=== PATIENT | female | born 1945 ===

== ENCOUNTER 2016-09-01 06:31 | Day surgery (SDC) | payer MEDICARE ==
[2016-09-01 06:56] VITALS: BMI 19.3
[2016-09-01] MEDS ORDERED: Midazolam 2 MG/2 ML VIAL ONE (07:43)
[2016-09-01] MEDS ORDERED: Propofol 10 mg/ml Inj (20 ML) ONE (07:43)
--- NOTE | 2016-09-01 07:57 | CP.SDSHP ---
Same Day Surgery H & P - History Proposed Procedure: Flexible sigmoidoscopy Pre-Op Diagnosis: Colitis - Previous Medical/Surgical History Cardiac: Other Comments: Hyperlipidemia Previous Surgical History: Glaucoma, stapedectomy - Allergies Allergies: Allergies No Known Allergies Allergy (Unverified 08/01/13 12:58) - Current Medications Current Medications: See list - Physical Exam General Appearance: WD WN female in NAD Vital Signs: Vital Signs 09/01/16 06:56 Temperature 98.6 F Pulse Rate 94 H Respiratory 18 Rate Blood Pressure 141/63 O2 Sat by Pulse 100 Oximetry Mental Status: Alert & Oriented x3 Neuro: WNL Heart: WNL Lungs: WNL GI: WNL - {Optional Preform as Required} Abdomen: WNL - Impression Impression: Colitis Pt. Evaluated Today:Candidate for Anesthesia & Procedure: Yes - Date & Time Date: 09/01/16 Time: 07:57 Short Stay Discharge - Short Stay Discharge Admitting Diagnosis/Reason for Visit: PROCTITIS Disposition: HOME/ ROUTINE
[2016-09-01 08:24] VITALS: TEMP 97
[2016-09-01 08:50] VITALS: O2SAT 100
[2016-09-01 08:51] VITALS: RESP 16
[2016-09-01 09:11] VITALS: BP 106/70; PULSE 77
== END 2016-09-01 09:45 | disposition home or self-care (01) ==
LOC: C.ENDO 06:31
PROVIDERS: ATTEND Internal Medicine Gastroenterology
DX: K51.90 Ulcerative colitis, unspecified, without complications (principal); K64.0 First degree hemorrhoids
CPT/HCPCS: 45330; J2001; J2250; J2704

== ENCOUNTER 2017-08-03 06:53 | Day surgery (SDC) | payer MEDICARE ==
[2017-08-03] MEDS ORDERED: Propofol 10 mg/ml Inj (20 ML) ONE (07:59)
[2017-08-03] MEDS ORDERED: Lactated Ringer's 1,000 ML IV ONE (08:35)
--- NOTE | 2017-08-03 08:37 | CP.SDSHP ---
Same Day Surgery H & P - History Proposed Procedure: Flexible sigmoidoscopy Pre-Op Diagnosis: Change in bowel habits, rectal bleeding - Previous Medical/Surgical History Misc: Other Comments: Colitis, hyperlipidemia, glaucoma Previous Surgical History: Stapedectomy - Allergies Allergies: Allergies No Known Allergies Allergy (Verified 08/03/17 07:20) - Current Medications Current Medications: See reconciliation sheet - Physical Exam General Appearance: WD WN female in NAD Vital Signs: Vital Signs 08/03/17 08/03/17 07:22 07:50 Temperature 98 F Pulse Rate 80 80 Respiratory 20 Rate Blood Pressure 123/53 L O2 Sat by Pulse 100 Oximetry Mental Status: Alert & Oriented x3 Neuro: WNL Heart: WNL Lungs: WNL GI: WNL - {Optional Preform as Required} Abdomen: WNL - Impression Impression: Change in bowel habits, rectal bleeding Pt. Evaluated Today:Candidate for Anesthesia & Procedure: Yes - Date & Time Date: 08/03/17 Time: 08:37 Short Stay Discharge - Short Stay Discharge Admitting Diagnosis/Reason for Visit: CHANGE IN BOWEL HABITS Disposition: HOME/ ROUTINE
[2017-08-03 09:13] VITALS: TEMP 98.4
[2017-08-03 09:16] VITALS: O2SAT 100
[2017-08-03 09:40] VITALS: PULSE 77
[2017-08-03 10:46] VITALS: BP 102/54; RESP 16
== END 2017-08-03 10:25 | disposition home or self-care (01) ==
LOC: C.ENDO 06:53
PROVIDERS: ATTEND Internal Medicine Gastroenterology
DX: K29.70 Gastritis, unspecified, without bleeding (principal); K52.9 Noninfective gastroenteritis and colitis, unspecified; E78.5 Hyperlipidemia, unspecified; K62.5 Hemorrhage of anus and rectum
CPT/HCPCS: 45331; 88305; 88313; 88342; J2704; J7120

== ENCOUNTER 2018-01-14 15:24 | Emergency (ER) | payer MEDICARE ==
[2018-01-14 15:24] VITALS: BMI 19.3
[2018-01-14 15:33] VITALS: O2SAT 98
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
--- NOTE | 2018-01-14 16:24 | RAD ---
Date of service: 01/14/2018 PROCEDURE: Radiographs of the left elbow. HISTORY: pain/swelling no trauma COMPARISON: No prior. FINDINGS: BONES: No acute fracture. JOINTS: Unremarkable. SOFT TISSUES: Soft tissue swelling posteriorly. JOINT EFFUSION: None. OTHER FINDINGS: None IMPRESSION: Soft tissue swelling without demonstrated fracture or dislocation.
[2018-01-14 16:25] VITALS: BP 108/65; PULSE 92; RESP 16; TEMP 99
== END 2018-01-14 16:25 | disposition home or self-care (01) ==
LOC: C.ER 15:24
DX: L03.114 Cellulitis of left upper limb (principal); E78.00 Pure hypercholesterolemia, unspecified